=== PATIENT | female | born 1935 | race Hispanic/Latino ===

== ENCOUNTER 2018-09-15 12:27 | Outpatient (CLI) | payer MEDICARE | END 2018-09-15 12:28 | disposition home or self-care (01) | LOC: C.PAT 12:27 | DX: N39.0 Urinary tract infection, site not specified (principal) ==

== ENCOUNTER 2018-09-25 09:16 | Day surgery (SDC) | payer MEDICARE ==
[2018-09-15 12:41] VITALS: BMI 22.4
[2018-09-25] MEDS ORDERED: Iohexol 240 (50 ml) ONE (10:56)
[2018-09-25] MEDS ORDERED: cefTRIAXone 1 gm 1 GM/100 ML BAG IVPB ONE (10:56)
[2018-09-25] MEDS ORDERED: Propofol 10 mg/ml Inj (20 ML) ONE (11:39)
[2018-09-25] MEDS ORDERED: Lidocaine 2% Jelly (Uro-Jet) ONE (12:02)
[2018-09-25] MEDS ORDERED: Morphine 4 MG/ML VIAL IVP PRN (12:15)
[2018-09-25] MEDS ORDERED: Lactated Ringer's 1,000 ML IV SCH (12:15)
--- NOTE | 2018-09-25 12:17 | PCM.SURG1 ---
Surgeon's Initial Post Op Note - Surgeon's Notes Surgeon: Ochoa Bateman Superintendent Compressor Stations: none Type of Anesthesia: General Mask Pre-Operative Diagnosis: recurrent UTI Operative Findings: same. cystitis. mild R UP junction obstruction Post-Operative Diagnosis: same Operation Performed: cysto. bilat rtg pyelogram. bladder bx and fulg. EUA Specimen/Specimens Removed: urine, bladder bx Estimated Blood Loss: EBL {In ML}: 0 Blood Products Given: N/A Drains Used: No Drains Date of Surgery/Procedure: 09/25/18 Time of Surgery/Procedure: 12:17
[2018-09-25 13:57] VITALS: RESP 18; O2SAT 100
[2018-09-25 15:11] VITALS: BP 117/79; PULSE 68; TEMP 97.5
--- NOTE | 2018-09-27 17:13 | RAD ---
Date of service: 09/25/2018 PROCEDURE: Intraoperative fluoroscopy HISTORY: CYSTO COMPARISON: Not available TECHNIQUE: Intraoperative fluoroscopy was provided for bilateral retrograde pyelo ureteral atrophy. Total time of fluoroscopy was 21.8 sec. Cumulative dose was 0.17538 mGy meter squared. FINDINGS: Multiple fluoroscopic spot films are submitted films are on file for review. IMPRESSION: Fluoroscopy provided.
--- NOTE | 2018-09-27 22:33 | OP ---
PROCEDURE DATE: 09/25/2018 PREOPERATIVE DIAGNOSIS: Recurrent urinary tract infection. POSTOPERATIVE DIAGNOSES: Recurrent urinary tract infection and cystitis. PROCEDURES: Cystoscopy. Bilateral retrograde pyelogram. Bladder biopsy and fulguration. Exam under anesthesia. OPERATING SURGEON: Dr. May Bateman. DESCRIPTION OF PROCEDURE: The patient was placed in lithotomy position. Genitalia prepped and draped sterilely. Anesthesia was provided by the anesthesiologist. Anesthesia was applied by the anesthesiologist. The procedure was performed under video endoscopic control as well as under fluoroscopic control. A 22-[place] cystoscope sheath was introduced under direct vision. Urine from the bladder was sent for bacteriologic and cytologic examination. The urethra and bladder were inspected with 30-degree lens. FINDINGS: There was no evidence of bladder tumor. There was [id number] inflammation of the bladder mucosa. There was moderate bladder trabeculation. There was no bladder diverticulum. There was no bladder tumor. There was no bladder stone. The ureteral orifices were normal in position and shape. Occlusive tip retrograde ureteral pyelogram was performed. Iodinated contrast dye was instilled via a cone-tip catheter into each ureteral orifice. Retrograde pyelogram demonstrated no evidence of filling defect or obstruction within the ureters or collecting systems. There was noted to be mild right hydronephrosis secondary to a mild ureteropelvic junction obstruction. There was mild caliectasis. There was incomplete drainage noted on the post-drainage film. The ureters were of normal course and caliber. The bladder was reinspected with 70-degree lens and confirmed the above findings. An area of mildly increased focal erythema in the bladder was biopsied from the posterior wall of the bladder. Cold cup biopsy forceps was obtained. Fulguration was performed with Ball electrode and electrocautery. Hemostasis was complete. The bladder was drained. Cystoscope sheath removed. Exam under anesthesia was performed. There was no abnormal pelvic mass fixation or induration. There was no bladder mass. The patient tolerated procedure without complication. May Bateman MD
== END 2018-09-25 15:08 | disposition home or self-care (01) ==
LOC: C.SDS 09:16
PROVIDERS: ATTEND Urology
DX: N39.0 Urinary tract infection, site not specified (principal)
CPT/HCPCS: 52005; 52204; 87086; 88104; 88305; C1758; J0696